=== PATIENT | male | born 1990 | race Caucasian/White ===

== ENCOUNTER → 2017-12-16 | Outpatient (CLI) | payer OTHER ==
--- NOTE | 2017-12-16 15:22 | Diagnostic Imaging Report ---
INDICATION: Back pain and scoliosis. TIME OF EXAM: 2:56 p.m. FINDINGS: S-shaped thoracolumbar scoliotic curvature is noted, convex to the right in the thoracic portion and convex to the left in the lumbar portion. The vertebral body heights are maintained. No acute compression fracture is seen. The pedicles and paraspinous line are intact. IMPRESSION: Thoracolumbar scoliosis. No acute bony abnormality is detected. Dictated by: Dictated on workstation # [id number]
--- NOTE | 2017-12-16 15:23 | Diagnostic Imaging Report ---
INDICATION: Back pain. TIME OF EXAM: 3:01 PM FINDINGS: Three views of the lumbar spine demonstrate mild left convexity scoliotic curvature. There is normal lordotic curvature. There is mild grade 1 spondylolisthesis of L5 on S1. There are some lucencies in the region of the pars at L5-S1 level suggestive of spondylolysis. The vertebral body heights are maintained. No acute compression fracture is detected. Disc spaces are fairly well-maintained. IMPRESSION: L5-S1 spondylolisthesis and probable spondylolysis. Dictated by: Dictated on workstation # [id number]
== END ==
LOC: RAD 14:14
PROVIDERS: ATTEND Family Medicine
DX: M43.17 Spondylolisthesis, lumbosacral region (principal); M41.85 Other forms of scoliosis, thoracolumbar region
CPT/HCPCS: 72072; 72100

== ENCOUNTER 2018-11-13 08:44 | Outpatient (RCR) | payer OTHER | END 2018-12-17 14:20 | disposition home or self-care (01) | PROVIDERS: ATTEND Family Medicine | DX: M47.26 Other spondylosis with radiculopathy, lumbar region (principal); M25.552 Pain in left hip ==